=== PATIENT | male | born 2000 | race Caucasian/White ===

== ENCOUNTER 2021-09-01 09:26 | Outpatient (CLI) | payer OTHER ==
--- NOTE | 2021-09-01 12:44 | MRI Report ---
PROCEDURE: Knee LT W/O INDICATIONS: LEFT KNEE PAIN TECHNIQUE: Noncontrast sagittal PD fast spin echo and T2 fast spin echo with fat saturation, sagittal 3-D gradie nt sequence with fat saturation; coronal T1 spin echo and PD fast spin echo with fat saturation, and axial PD fast spin echo with fat saturation through the knee. COMPARISON: None. Findings: Medial meniscus: No surface communication. Blunting of the anterior horn, free edge, which may reflec t a right tear (701-18; 501-19. Lateral meniscus: No surface communication/tear. LIGAMENTS/TENDONS: Patellar tendon: Intact. Distal quadriceps tendon: Intact. Hoffa's fat pad: No evidence of fibrosis or mass. PCL: Intact. ACL: Intact. Lateral collateral ligament complex: No significant abnormality. Popliteus tendon: Intact. Medial collateral ligament: No significant abnormality.. MARROW: No significant abnormality. CARTILAGE: No significant chondromalacia, cartilaginous laceration or contusion. Muscles: No significant edema or atrophy. Joint effusion/Lynn's cyst: No large joint effusion or Lynn's cyst. Subcutaneous soft tissues: No significant edema. IMPRESSION: 1. Blunting of the anterior horn, medial meniscus as detailed above, which may reflect a root tear. Reviewed by: Dustin Rubi MD on 09/01/2021 12:42 PM PST Approved by: Dustin Rubi MD on 09/01/2021 12:42 PM PST Station ID: [id number]
== END 2021-09-01 09:27 | disposition home or self-care (01) ==
LOC: DI 09:26
PROVIDERS: ATTEND Student in an Organized Health Care Education/Training Program
DX: M25.562 Pain in left knee (principal); R93.6 Abnormal findings on diagnostic imaging of limbs

== ENCOUNTER 2022-04-05 16:54 | Outpatient (CLI) | payer OTHER | END 2022-04-05 16:55 | disposition short-term general hospital (02) | LOC: EMS 16:54 | DX: S69.92XA Unspecified injury of left wrist, hand and finger(s), initial encounter (principal); V58.1XXA Passenger in pick-up truck or van injured in noncollision transport accident in nontraffic accident, initial encounter; Y92.138 Other place on military base as the place of occurrence of the external cause | CPT/HCPCS: A0425; A0429 ==